=== PATIENT | male | born 1960 | race African-American/Black ===

== ENCOUNTER 2019-07-23 19:27 | Emergency (ER) | payer BC, MEDICAID ==
[~2019-07-23] VITALS: Ht 177.8 cm; Wt 94.0 kg
[2019-07-23] MEDS ORDERED: IBUPROFEN 600MG TABLET PO ONE (21:00)
[2019-07-23 22:29] VITALS: BP 121/78
== END 2019-07-23 22:30 | disposition home or self-care (01) ==
LOC: ER 19:27
DX: S52.121A Displaced fracture of head of right radius, initial encounter for closed fracture (principal); Z98.890 Other specified postprocedural states; X50.0XXA Overexertion from strenuous movement or load, initial encounter; Y93.89 Activity, other specified; Y92.89 Other specified places as the place of occurrence of the external cause; Y99.8 Other external cause status
CPT/HCPCS: 29105; 73080; 99283